=== PATIENT | male | born 1940 | race Caucasian/White ===

== ENCOUNTER 2018-09-23 00:35 | Emergency (ER) | payer MEDICARE, BC ==
[~2018-09-23] VITALS: Ht 157.5 cm; Wt 57.9 kg
[2018-09-23] MEDS ORDERED: normal saline 1000ML IV soln IVB ONE ×2 (01:45→02:25)
[2018-09-23 02:18] LABS: ALANINE AMINOTRANSFERASE 17 U/L (12-78); ALBUMIN/GLOBULIN RATIO 0.5 (1.1-1.5); ALKALINE PHOSPHATASE 105 IU/L (46-116); ANION GAP 13 (8-16); ASPARTATE AMINO TRANSFERASE 17 U/L (10-37); BILIRUBIN,TOTAL 0.4 MG/DL (0.1-1.0); BLOOD UREA NITROGEN 37 MG/DL (7-18); BUN/CREATININE RATIO 16.5 (5.4-32.0); CALCIUM 8.8 MG/DL (8.5-10.1); CHLORIDE 100 MMOL/L (99-107); CREATININE 2.24 MG/DL (0.60-1.10); GLUCOSE 117 MG/DL (70-104); POTASSIUM 4.7 MMOL/L (3.5-5.1); SODIUM 135 MMOL/L (135-145); TOTAL CARBON DIOXIDE 22.3 MMOL/L (24-32); TOTAL PROTEIN 8.6 G/DL (6.4-8.2); eGFR 28 ML/MIN
[2018-09-23 02:23] LABS: BASOPHILS % (AUTO) 0.2 % (0-1); EOSINOPHILS # (AUTO) 0.1 X10'3 (0-0.9); EOSINOPHILS % (AUTO) 0.7 % (0-6); HEMATOCRIT 28.6 % (42.0-52.0); HEMOGLOBIN 9.7 g/dl (14.0-17.9); LYMPHOCYTES # (AUTO) 3.1 X10'3 (1.1-4.8); LYMPHOCYTES % (AUTO) 23.1 % (21-51); MEAN CORPUSCULAR HEMOGLOBIN 30.1 PG (27.0-31.0); MEAN CORPUSCULAR VOLUME 88.7 FL (78-98); MEAN PLATELET VOLUME 8.1 FL (7.4-10.4); MONOCYTES # (AUTO) 1.3 X10'3 (0-0.9); MONOCYTES % (AUTO) 9.6 % (2-12); NEUTROPHILS # (AUTO) 8.7 X10'3 (1.8-7.7); NEUTROPHILS % (AUTO) 66.4 % (42-75); PLATELET COUNT 247 X10'3 (140-440); RED BLOOD COUNT 3.23 X10'6 (4.70-6.10); RED CELL DISTRIBUTION WIDTH 15.4 % (11.5-14.5); WHITE BLOOD COUNT 13.2 X10'3 (4.5-11.0)
[2018-09-23] MEDS ORDERED: AMOX-422 PO (02:44)
[2018-09-23] MEDS ORDERED: amox tr/potassium clavulanate 875/125mg TAB PO ONE (02:50)
[2018-09-23 02:55] VITALS: BP 174/96
== END 2018-09-23 03:10 | disposition home or self-care (01) ==
LOC: ER 00:36
DX: H66.92 Otitis media, unspecified, left ear (principal); Z79.2 Long term (current) use of antibiotics; Z87.891 Personal history of nicotine dependence
CPT/HCPCS: 36415; 71046; 80053; 84145; 85025; 99284; J7030

== ENCOUNTER 2019-08-30 13:09 | Inpatient (IN) | payer MEDICARE, BC ==
[~2019-08-30] VITALS: Ht 149.9 cm; Wt 68.2 kg
[2019-08-30] VITALS (13 sets, daily range): BP systolic 76–141; BP diastolic 46–72
[2019-08-30] MEDS ORDERED: pantoprazole IV 80 MG in normal saline 100ml IV soln 100 ML IV ONE (13:30)
[2019-08-30] MEDS ORDERED: normal saline 1000ML IV soln IV ONE (13:30)
[2019-08-30] MEDS ORDERED: cefepime 1GM in D5W 50mL 50 ML IV ONE (13:30)
[2019-08-30] MEDS ORDERED: pantoprazole IV 40 MG in normal saline 100ml IV soln 100 ML IV ONE (13:36)
[2019-08-30 13:44] LABS: BASOPHILS % (AUTO) 0.5 % (0-1); EOSINOPHILS # (AUTO) 0.2 X10'3 (0-0.9); EOSINOPHILS % (AUTO) 2.1 % (0-6); LYMPHOCYTES # (AUTO) 3.1 X10'3 (1.1-4.8); LYMPHOCYTES % (AUTO) 29.7 % (21-51); MEAN CORPUSCULAR HEMOGLOBIN 30.4 PG (27.0-31.0); MEAN CORPUSCULAR HGB CONC 33.9 g/dL (33.0-36.5); MEAN CORPUSCULAR VOLUME 89.6 FL (78-98); MEAN PLATELET VOLUME 8.4 FL (7.4-10.4); MONOCYTES # (AUTO) 1.7 X10'3 (0-0.9); MONOCYTES % (AUTO) 16.6 % (2-12); NEUTROPHILS # (AUTO) 5.3 X10'3 (1.8-7.7); NEUTROPHILS % (AUTO) 51.1 % (42-75); PLATELET COUNT 191 X10'3 (140-440); RED BLOOD COUNT 1.93 X10'6 (4.70-6.10); RED CELL DISTRIBUTION WIDTH 14.6 % (11.5-14.5); WHITE BLOOD COUNT 10.3 X10'3 (4.5-11.0)
[2019-08-30 14:00] LABS: ALANINE AMINOTRANSFERASE 33 U/L (12-78); ALBUMIN 3.1 G/DL (3.4-5.0); ALBUMIN/GLOBULIN RATIO 0.7 (1.1-1.5); ALKALINE PHOSPHATASE 86 IU/L (46-116); ANION GAP 11 (8-16); ASPARTATE AMINO TRANSFERASE 76 U/L (10-37); BILIRUBIN,TOTAL 0.4 MG/DL (0.1-1.0); BLOOD UREA NITROGEN 58 MG/DL (7-18); BUN/CREATININE RATIO 22.2 (5.4-32.0); CALCIUM 8.4 MG/DL (8.5-10.1); CHLORIDE 110 MMOL/L (99-107); CREATININE 2.61 MG/DL (0.60-1.10); GLUCOSE 112 MG/DL (70-104); POTASSIUM 5.4 MMOL/L (3.5-5.1); SODIUM 145 MMOL/L (135-145); TOTAL CARBON DIOXIDE 23.9 MMOL/L (24-32); TOTAL PROTEIN 7.6 G/DL (6.4-8.2); eGFR 24 ML/MIN
--- NOTE | 2019-08-30 14:14 | NUR ---
TROP 5.54 INFORMED TAMIR GRECO
[2019-08-30] MEDS ORDERED: DOCU-267 PO (14:33)
[2019-08-30] MEDS ORDERED: ATOR40TA72 PO (14:33)
[2019-08-30] MEDS ORDERED: FURO-150 PO (14:33)
[2019-08-30] MEDS ORDERED: LISI10TA4 PO (14:33)
[2019-08-30] MEDS ORDERED: OMEP40CA13 PO (14:33)
[2019-08-30] MEDS ORDERED: DONE10TA44 PO (14:33)
[2019-08-30] MEDS ORDERED: ASPI-1130 PO (14:33)
[2019-08-30] MEDS ORDERED: CARV6.253 PO (14:33)
[2019-08-30 15:02] LABS: CLARITY,URINE SLIGHTLY CLOUDY (Clear); COLOR,URINE YELLOW (Yellow); GLUCOSE, URINE NEGATIVE (Neg); KETONES,URINE NEGATIVE (Neg); LEUKOCYTE ESTERASE ,URINE NEGATIVE (Neg); NITRITES, URINE NEGATIVE (Neg); OCCULT BLOOD,URINE NEGATIVE (Neg); PROTEIN,URINE NEGATIVE (Neg); UA COLLECTION TYPE STRAIGHT CATH; UROBILINOGEN,URINE 0.2 E.U/dL (0.2-1.0)
[2019-08-30 15:08] LABS: SQUAMOUS EPITHELIAL CELL,UR FEW /LPF (FEW)
[2019-08-30 15:09] LABS: BACTERIA,URINE FEW /HPF (Neg); MUCUS STRANDS FEW /LPF (Neg); RBC,URINE 0-2 /HPF (0-2); RENAL CELLS, URINE FEW /HPF; TRANSITIONAL EPI CELLS,URINE FEW /HPF; WBC,URINE 0-4 /HPF (0-4)
[2019-08-30] MEDS ORDERED: normal saline 1000ml 1,000 ML IV SCH (15:42)
[2019-08-30] MEDS ORDERED: HYDROcodone/acetaminophen 5mg/325mg tablet PO PRN (15:45)
[2019-08-30] MEDS ORDERED: magnesium Cl slow-release 64mg tablet PO PRN (15:45)
[2019-08-30] MEDS ORDERED: acetaminophen 325mg tablet PO PRN ×2 (15:45)
[2019-08-30] MEDS ORDERED: potassium Cl 20 mEq SR tablet PO PRN ×2 (15:45)
[2019-08-30] MEDS ORDERED: potassium CL 10mEq/100ml bag 100 ML IV PRN ×2 (15:45)
[2019-08-30] MEDS ORDERED: ondansetron/PF 4mg/2ml inj IV PRN (15:45)
[2019-08-30] MEDS ORDERED: magnesium 2GM in 50ml NS 50 ML IV PRN (15:45)
[2019-08-30] MEDS ORDERED: magnesium 4gm in 100ml NS 100 ML IV PRN (15:45)
[2019-08-30 15:50] LABS: OCCULT BLOOD STOOL NEGATIVE (Neg)
--- NOTE | 2019-08-30 15:50 | NUR ---
PT HAD A BM THEN BECAME LESS RESPONSIVE. STARRING OFF TO THE LEFT. MD CALLED TO BEDSIDE.
[2019-08-30 17:46] LABS: POTASSIUM 5.7 MMOL/L (3.5-5.1)
--- NOTE | 2019-08-30 17:57 | NUR ---
SEE BP TRANSFUSION RECORDS FOR VS
[2019-08-30] MEDS ORDERED: furosemide 10 MG/1 ML 10ml inj IV ONE (18:00)
[2019-08-30] MEDS: pantoprazole 40MG/NS 100ML BAG 100 ML IV SCH ×2 (18:14→22:11)
[2019-08-30] MEDS: docusate sod 100mg capsule PO SCH (18:15)
--- NOTE | 2019-08-30 18:28 | NUR ---
REPORT GIVEN TO KEYUR TRUONG.
--- NOTE | 2019-08-30 19:30 | NUR ---
Patient arrived from the ER to PCU at this time. He is responsive to painful stimuli but otherwise does not respond verbally to any questions at this time. Blood pressure low at 88/54 but this is improved from what it was in the ER and MAP is adequate. He is on 2 liters NC and sating well. Second blood transfusion just being completed at this time. Protonix gtt running. Richardson cath in place. Family accompanied patient up to room but leaving at this time. Will continue to monitor.
[2019-08-30 20:14] LABS: BASOPHILS % (AUTO) 0.3 % (0-1); EOSINOPHILS # (AUTO) 0.1 X10'3 (0-0.9); EOSINOPHILS % (AUTO) 0.7 % (0-6); HEMATOCRIT 22.6 % (42.0-52.0); HEMOGLOBIN 7.7 g/dl (14.0-17.9); LYMPHOCYTES # (AUTO) 1.9 X10'3 (1.1-4.8); LYMPHOCYTES % (AUTO) 23.4 % (21-51); MEAN CORPUSCULAR HEMOGLOBIN 30.2 PG (27.0-31.0); MEAN CORPUSCULAR HGB CONC 34.3 g/dL (33.0-36.5); MEAN CORPUSCULAR VOLUME 88.1 FL (78-98); MEAN PLATELET VOLUME 8.7 FL (7.4-10.4); MONOCYTES % (AUTO) 12.3 % (2-12); NEUTROPHILS # (AUTO) 5.1 X10'3 (1.8-7.7); NEUTROPHILS % (AUTO) 63.3 % (42-75); PLATELET COUNT 154 X10'3 (140-440); RED BLOOD COUNT 2.57 X10'6 (4.70-6.10); WHITE BLOOD COUNT 8.1 X10'3 (4.5-11.0)
--- NOTE | 2019-08-30 20:30 | NUR ---
Patient has worsening ST segment depression on tele monitor. 12 lead EKG obtained which confirms the ST depression. Dr. Tirado notified and taken the EKG. No new orders were received.
[2019-08-30] MEDS ORDERED: temazepam 15mg capsule PO PRN (21:00)
--- NOTE | 2019-08-30 21:00 | NUR ---
Patient found up out of bed wandering around the room naked and with quality assurance monitor pulled off and also PIV pulled out. He was incontinent of BM at this time. Patient was assisted back into bed and cleaned up and then moved to [facility] at this time so that he could be with a sitter for observation.
--- NOTE | 2019-08-30 23:42 | NUR ---
orthostatics not done due to patient not able to tolerate at this time. Addendum: 08/30/19 at 2343 by Sita Amezquita RN Amended: Links added.
[2019-08-31] VITALS (7 sets, daily range): BP systolic 78–128; BP diastolic 42–80
--- NOTE | 2019-08-31 02:00 | NUR ---
Patient still pulling at lines while in sitter room, he has now pulled out his second PIV and is tugging on his brown catheter. Also patient grabbed needle while trying to draw blood for the lab and grabbing and kicking at staff. He is unable to follow commands and continues to be very confused and impulsive. Order obtained for soft wrist restraints.
[2019-08-31 02:16] LABS: BASOPHILS % (AUTO) 0.2 % (0-1); EOSINOPHILS # (AUTO) 0.1 X10'3 (0-0.9); EOSINOPHILS % (AUTO) 0.5 % (0-6); HEMATOCRIT 23.9 % (42.0-52.0); HEMOGLOBIN 8.3 g/dl (14.0-17.9); LYMPHOCYTES # (AUTO) 2.7 X10'3 (1.1-4.8); LYMPHOCYTES % (AUTO) 24.4 % (21-51); MEAN CORPUSCULAR HEMOGLOBIN 30.4 PG (27.0-31.0); MEAN CORPUSCULAR HGB CONC 34.6 g/dL (33.0-36.5); MEAN CORPUSCULAR VOLUME 87.8 FL (78-98); MEAN PLATELET VOLUME 8.9 FL (7.4-10.4); MONOCYTES # (AUTO) 1.3 X10'3 (0-0.9); MONOCYTES % (AUTO) 11.9 % (2-12); NEUTROPHILS # (AUTO) 6.9 X10'3 (1.8-7.7); PLATELET COUNT 177 X10'3 (140-440); RED BLOOD COUNT 2.72 X10'6 (4.70-6.10); WHITE BLOOD COUNT 10.9 X10'3 (4.5-11.0)
[2019-08-31 02:27] LABS: ALANINE AMINOTRANSFERASE 494 U/L (12-78); ALBUMIN 2.9 G/DL (3.4-5.0); ALBUMIN/GLOBULIN RATIO 0.7 (1.1-1.5); ALKALINE PHOSPHATASE 301 IU/L (46-116); ASPARTATE AMINO TRANSFERASE 640 U/L (10-37); BILIRUBIN,TOTAL 0.6 MG/DL (0.1-1.0); BLOOD UREA NITROGEN 57 MG/DL (7-18); BUN/CREATININE RATIO 19.1 (5.4-32.0); CALCIUM 7.9 MG/DL (8.5-10.1); CREATININE 2.99 MG/DL (0.60-1.10); GLUCOSE 122 MG/DL (70-104); POTASSIUM 5.9 MMOL/L (3.5-5.1); SODIUM 148 MMOL/L (135-145); TOTAL PROTEIN 7.3 G/DL (6.4-8.2); eGFR 20 ML/MIN
[2019-08-31 02:30] LABS: MAGNESIUM 2.7 MG/DL (1.5-2.4)
[2019-08-31 02:36] LABS: ANION GAP 13 (8-16); CHLORIDE 115 MMOL/L (99-107)
[2019-08-31] MEDS: pantoprazole 40MG/NS 100ML BAG 100 ML IV SCH ×5 (02:57→19:40)
--- NOTE | 2019-08-31 03:13 | NUR ---
Unable to dart patient due to confusion and inability to answer questions.
--- NOTE | 2019-08-31 04:09 | NUR ---
Dr. Tirado notified of K level of 5.9 and ordered a one time dose of Kayexalate.
[2019-08-31] MEDS ORDERED: sodium polystyrene sulfonate 15gm/60ml oral suspension PO ONE (04:10)
--- NOTE | 2019-08-31 06:34 | NUR ---
Problems reprioritized. Patient report given, questions answered & plan of care reviewed with Mackenzie TRUONG.
--- NOTE | 2019-08-31 06:35 | NUR ---
Patient in room PCU 3012. I have received report from Sita TRUONG and had the opportunity to ask questions and assume patient care.
[2019-08-31] MEDS: docusate sod 100mg capsule PO SCH ×2 (07:06→19:43)
[2019-08-31] MEDS ORDERED: pantoprazole 40mg Tablet.DR PO SCH (07:30)
[2019-08-31 08:16] LABS: HEMATOCRIT 17.3 % (42.0-52.0); HEMOGLOBIN 5.9 g/dl (14.0-17.9)
[2019-08-31] MEDS: atorvastatin 20mg tablet PO SCH (08:28)
[2019-08-31] MEDS: K and/or MAG REPLACEMENT MC SCH (08:31)
--- NOTE | 2019-08-31 09:54 | NUR ---
Paged Respiratory regarding new order from [facility]G from Dr. Flor.
--- NOTE | 2019-08-31 10:30 | NUR ---
Spoke with Dr. Flor via telephone. Patients Granddaughter, Mackenzie Street at the bedside requesting to speak with Dr. Flor to discuss a plan of care. Dr. Flor has asked that the granddaughter be informed that this patient is new to her and she will be happy to discuss the patients care after 1400 or in the morning if possible. Will inform the granddaughter of the MDs response.
--- NOTE | 2019-08-31 10:33 | NUR ---
PAGER ID: [phone] MESSAGE: [id number]: Edgar Buckley. Family at bedside and would like to discuss the pts carewith you. Thanks ! [phone]
[2019-08-31 11:01] LABS: ABG BASE EXCESS -8.2 mmol/L (-2.0-3.0); ABG HCO3 17.7 mmol/L (22.0-26.0); ABG PCO2 (T) 37.7 mmHg (35.0-45.0); ABG PO2 (T) 64.3 mmHg (83-108); FCOHb 0.3 % (0.5-1.5); FLOW 2 L/min; FMetHb 0.3 % (0.3-1.12); FO2Hb 87.5 % (94-100); TOTAL HEMOGLOBIN 9.3 G/dl (14.0-17.9)
--- NOTE | 2019-08-31 11:24 | NUR ---
PAGER ID: [phone] MESSAGE: [id number]: Edgar Sanchez. CXR shows Moderate Pulmonary Edema. ABGs are back. Thanks Mackenzie Valentin [phone]
[2019-08-31] MEDS ORDERED: furosemide 10 MG/1 ML 10ml inj IV ONE (11:30)
--- NOTE | 2019-08-31 11:59 | NUR ---
Spoke with Dr. Flor via the telephone. Informed her of the patients BP (90/60). New orders: Hold Lasix, call RT and place patient on BiPap. Will page RT. Dr. Flor is trying to get consultation from Dr. Corea. Informed Dr. Flor that the family will be here at 4:30 today. She has requested to be paged so she may discuss plan of care with them. Will continue to monitor patient.
[2019-08-31] MEDS ORDERED: FLU VACC QS2019-20 36MOS UP/PF 60 MCG/0.5 ML SYRINGE IMVAC ONE (12:10)
--- NOTE | 2019-08-31 13:35 | NUR ---
Wound care POC. Reviewed patient's chart and no pictures present. Received wound care consult for excoriation to buttocks. Spoke with primary nurse and she stated there was nothing that needed to be treated by wound care staff that she was aware of. Will follow up if necessary but at this time no wound care interventions needed.
--- NOTE | 2019-08-31 14:30 | NUR ---
Patient has a FC that Dr. Flor is aware of. The patient has this FC in place to monitor for critically ill and comfort for pending comfort care. FC care has been performed. Will continue to monitor patient.
--- NOTE | 2019-08-31 16:45 | NUR ---
Discussion in the conference room, present: Dr. Flor, patients Daughter (Kristin), Granddaughter (Maceknzie) and Mackenzie Valentin RN. Dr. Flor has discussed the patients care and has suggested that the family consider placing the patient on comfort care. The MD and the family have both had the chance to discuss this topic and questions have been answered. Dr. Flor has explained to the family that they may take their time in making this decision, and to let Mackenzie Valentin RN or herself know what they decide. Will continue to monitor patient.
--- NOTE | 2019-08-31 17:17 | NUR ---
Orientee documentation: I have reviewed and agree with all interventions, assessments performed and documented by DIONNE Naqvi. Orientee Medication Administration: For this medication-pass time frame, all medication were reviewed, dispensed, administered and documented per hospital policy by DIONNE Naqvi.
--- NOTE | 2019-08-31 17:50 | NUR ---
Spoke with Dr. Flor via telephone and informed her that the patients family has agreed to place the patient on comfort care. New orders: Comfort care orders per protocol. Will input orders and continue to monitor the patient.
[2019-08-31] MEDS ORDERED: morphine 10mg/ml inj. IV PRN (17:55)
--- NOTE | 2019-08-31 18:09 | NUR ---
Page sent to Dr Flor regarding dobutamine drip PAGER ID: [phone] MESSAGE: Donya TRUONG [id number]. [id number], Edgar Buckley. Family is ok w/ dobutamine drip starting, what would you like to start at? Thank you
--- NOTE | 2019-08-31 18:10 | NUR ---
Patient in room PCU 3009. I have received report from Mackenzie Centeno RN and DIONNE Lemos (orienteer) and had the opportunity to ask questions and assume patient care.
--- NOTE | 2019-08-31 18:25 | NUR ---
Problems reprioritized. Patient report given, questions answered & plan of care reviewed with Paul TURONG and Kirsten TRUONG.
--- NOTE | 2019-08-31 18:33 | NUR ---
Spoke with Dr. Flor via the telephone. New Orders: Dobutamine at 5mcg/kg/hr, stop comfort care, morphine 1mg IV Q2H for pain/comfort. Will change code status back to DNR and dc comfort care orders.
[2019-08-31] MEDS: DOBUTamine-DoBUTrex 500mg/D5W 250 ML IV SCH (19:34)
--- NOTE | 2019-08-31 19:59 | NUR ---
patient is combative, refused the oral medication, docusate. The patient has 20g Right forearm, running dobutamine at 5mcg/kg/hr, not compatible with pantoprazole. We will put the pantoprazole on hold for now until the patient let us start another iv.
[2019-08-31] MEDS: morphine 2 MG/ML inj. syringe IV PRN (20:28)
--- NOTE | 2019-08-31 21:09 | NUR ---
Dr. Lira rounded around 1930 and emphasized on patient's comfort care. Ordered morphine 1mg q1hr/q2hr for pain. she stated that the dobutamine is running to increase the patient's urine output. No other orders were given at this time
[2019-08-31] MEDS: LORazepam 2 mg/ml vial IV PRN (21:20)
--- NOTE | 2019-08-31 22:10 | NUR ---
Called Dr. Tirado and informed him regarding the patient's blood pressure being 73/34, with heart rate of 108 and respiratory rate in upper 20's. I also informed him regarding the patient being on dobutamine at 5mcg/kg/min. He said its the max dose for him. He acknowledged the issue. No other orders were given at this time. The patient is code status is DNR, comfort measures. The family is at the bed side.
--- NOTE | 2019-08-31 22:14 | NUR ---
The family at the bedside. They don't want the sitter in the room at this time.
--- NOTE | 2019-08-31 22:29 | NUR ---
patient is resting comfortably. No facial expression for pain. No moaning or screaming. Family at the bedside. No pain medication needed at this time.
[2019-09-01] VITALS (7 sets, daily range): BP systolic 74–97; BP diastolic 38–51
[2019-09-01] MEDS: morphine 2 MG/ML inj. syringe IV PRN ×7 (00:02→22:19)
[2019-09-01] MEDS: LORazepam 2 mg/ml vial IV PRN ×4 (00:55→20:25)
[2019-09-01] MEDS: pantoprazole 40MG/NS 100ML BAG 100 ML IV SCH ×5 (01:00→21:00)
--- NOTE | 2019-09-01 01:01 | NUR ---
patient became agitated and was trying to pull out his IV. The sitter at the bedside. Gave 2mg IV ativan for his agitation.
--- NOTE | 2019-09-01 06:43 | NUR ---
Called Dr. Tirado regarding the lab draw for the patient being on comfort care. He said do not draw any labs for the patient. No other orders were given at this time.
--- NOTE | 2019-09-01 06:45 | NUR ---
Patient in room PCU 3011. I have received report from DIONNE Miller and had the opportunity to ask questions and assume patient care.
--- NOTE | 2019-09-01 06:45 | NUR ---
Patient in room PCU 3011. I have received report from Paul TRUONG and had the opportunity to ask questions and assume patient care.
[2019-09-01] MEDS: atorvastatin 20mg tablet PO SCH (08:00)
[2019-09-01] MEDS: K and/or MAG REPLACEMENT MC SCH (08:00)
[2019-09-01] MEDS: docusate sod 100mg capsule PO SCH ×2 (08:00→19:39)
--- NOTE | 2019-09-01 10:15 | NUR ---
Dr. Flor at the nurses station and states she talked with the night nurse on 08/31 at 1999 and requested the patient be placed on comfort care, and that the Dobutamine gtt is for comfort only. Code status has been updated as ordered at this time in person by Dr. Flor.
--- NOTE | 2019-09-01 14:05 | NUR ---
Malnutrition consult, patient is DNR with comfort care pending d/c to hospice. Will continue to follow per protocol. Addendum: 09/01/19 at [address] Amended: Links added.
--- NOTE | 2019-09-01 15:45 | NUR ---
At 1119 pt was given morphine 1mg/0.5mL but was documented under morphine given at 0.25mL. Called pharmacy and was told to non-administer the incorrect documentation and set it for the wrong time/dose.
[2019-09-01] MEDS: DOBUTamine-DoBUTrex 500mg/D5W 250 ML IV SCH (17:42)
--- NOTE | 2019-09-01 18:27 | NUR ---
Problems reprioritized. Patient report given, questions answered & plan of care reviewed with DIONNE Flores.
--- NOTE | 2019-09-01 18:32 | NUR ---
Orientation documentation: I have reviewed and agree with all interventions, assessments performed and documented by July TRUONG.
[2019-09-02] MEDS: pantoprazole 40MG/NS 100ML BAG 100 ML IV SCH (01:00)
[2019-09-02] MEDS: morphine 2 MG/ML inj. syringe IV PRN ×5 (03:51→23:50)
[2019-09-02 06:00] VITALS: BP 98/61
--- NOTE | 2019-09-02 06:25 | NUR ---
Patient in room PCU 3011. I have received report from DIONNE Erwin and had the opportunity to ask questions and assume patient care.
[2019-09-02] MEDS: atorvastatin 20mg tablet PO SCH (08:00)
[2019-09-02] MEDS: docusate sod 100mg capsule PO SCH ×2 (08:00→20:00)
[2019-09-02] MEDS: K and/or MAG REPLACEMENT MC SCH (08:00)
[2019-09-02 11:00] VITALS: BP 98/55
[2019-09-02] MEDS: LORazepam 2 mg/ml vial IV PRN ×2 (11:30→19:40)
[2019-09-02 15:00] VITALS: BP 110/79
--- NOTE | 2019-09-02 16:15 | NUR ---
Bruce Mahendra Rm [id number] May we d/c IV NaCl @ 100ml/hr ? She is having her EEG now. Will she d/c after? DIONNE Vega old1989 page to Doni Addendum: 09/02/19 at 1617 by Birgit Casper RN Wrong chart
--- NOTE | 2019-09-02 18:00 | NUR ---
Problems reprioritized. Patient report given, questions answered & plan of care reviewed with DIONNE Palumbo.
--- NOTE | 2019-09-02 18:15 | NUR ---
Patient in room PCU 3011. I have received report from Lazaro TRUONG and had the opportunity to ask questions and assume patient care. Patient is asleep with family at beside. Will continue to monitor closely.
[2019-09-02 19:00] VITALS: BP 112/68
[2019-09-03] MEDS: LORazepam 2 mg/ml vial IV PRN (03:13)
--- NOTE | 2019-09-03 05:20 | NUR ---
Called Dr. Lepe because patient has become more agitated and Ativan does not seem to work for him. The 1mg dose of Morphine is helping slightly but I believe a higher dose is necessary. Dr. Lepe agrees, new orders for Morphine 2mg Q1h for pain and agitation.
[2019-09-03] MEDS: morphine 2 MG/ML inj. syringe IV PRN ×4 (05:23→11:20)
[2019-09-03 06:00] VITALS: BP 108/59
--- NOTE | 2019-09-03 06:30 | NUR ---
Patient in room PCU 3011. I have received report from Deepali TRUONG, and had the opportunity to ask questions and assume patient care.
--- NOTE | 2019-09-03 06:46 | NUR ---
Problems reprioritized. Patient report given, questions answered & plan of care reviewed with Marianna TRUONG.
[2019-09-03] MEDS: K and/or MAG REPLACEMENT MC SCH (07:05)
--- NOTE | 2019-09-03 07:06 | NUR ---
Labs had been discontinued with the initiation of comfort care. Magnesium Potassium replacement protocol is also held.
[2019-09-03] MEDS: atorvastatin 20mg tablet PO SCH (07:10)
[2019-09-03] MEDS: docusate sod 100mg capsule PO SCH (08:00)
--- NOTE | 2019-09-03 09:43 | NUR ---
Initial: Pt with low Pascual of 11. No edema or wounds per physical assessment. Pt not eating well on pureed diet with nectar thick liquids however no nutrition intervention at this time given patient's code status of DNR with comfort care. [facility] 09/01. Will continue to follow per LOS protocol. Recommendations: 1) Continue bowel care per comfort care protocol Addendum: 09/03/19 at [address] Amended: Links added.
--- NOTE | 2019-09-03 11:00 | NUR ---
Discharged Home on Hospice Service: Pt. is not eating and does not attempt swallowing today. Morphine given for pain and agitation. Transferred via gurney to transport home.
--- NOTE | 2019-09-03 12:00 | NUR ---
Hospital course paperwork is faxed to [facility].
== END 2019-09-03 11:35 | disposition hospice, home (50) | DRG 280 ==
LOC: ER 13:10 → ED HOLD 15:42 → PCU 3S 19:33
PROVIDERS: ADMIT Internal Medicine; ATTEND Internal Medicine
PROC: 30233N1 Transfusion of Nonautologous Red Blood Cells into Peripheral Vein, Percutaneous Approach (ICD-10-PCS; principal; 2019-08-30)
DX: I21.4 Non-ST elevation (NSTEMI) myocardial infarction (principal); N18.6 End stage renal disease; I50.23 Acute on chronic systolic (congestive) heart failure; J96.00 Acute respiratory failure, unspecified whether with hypoxia or hypercapnia; R57.0 Cardiogenic shock; N17.0 Acute kidney failure with tubular necrosis; K92.2 Gastrointestinal hemorrhage, unspecified; D61.9 Aplastic anemia, unspecified; E87.2 Acidosis; I13.2 Hypertensive heart and chronic kidney disease with heart failure and with stage 5 chronic kidney disease, or end stage renal disease; I48.0 Paroxysmal atrial fibrillation; R00.1 Bradycardia, unspecified; K22.70 Barrett's esophagus without dysplasia; K44.9 Diaphragmatic hernia without obstruction or gangrene; J32.9 Chronic sinusitis, unspecified; Z51.5 Encounter for palliative care; Z66 Do not resuscitate; E78.00 Pure hypercholesterolemia, unspecified; E78.5 Hyperlipidemia, unspecified; E86.1 Hypovolemia; E87.5 Hyperkalemia; F03.90 Unspecified dementia, unspecified severity, without behavioral disturbance, psychotic disturbance, mood disturbance, and anxiety; I25.10 Atherosclerotic heart disease of native coronary artery without angina pectoris; I25.2 Old myocardial infarction; Z78.1 Physical restraint status; Z87.19 Personal history of other diseases of the digestive system; Z28.21 Immunization not carried out because of patient refusal
CPT/HCPCS: 36415; 36600; 71045; 80053; 81001; 82272; 82803; 82948; 83605; 83735; 84132; 84145; 84484; 85018; 85025; 85610; 86885; 86900; 86901; 86920; 87040; 87081; 92508; 92616; 93005; 93306; 94760; 96365; 96368; 99291; C9113; G0378; J0692; J1250; J1940; J2060; J2270; J7030; P9016; Q2037